=== PATIENT | female | born 1965 | race Caucasian/White ===

== ENCOUNTER → 2017-02-03 | Outpatient (CLI) | payer BC ==
[~2017-02-03] VITALS: Ht 165.1 cm; Wt 85.7 kg
[~2017-02-03] MED LIST: CHOL2000 PO; CRESTOR20 MG PO; FLUO40CA2 PO; LISI10TA2 PO; LORA10TA33 PO; MULT1TAB52 PO; OMEP20CA9 PO; PROAIR HFA8.5 GM INH; TRIA1TAB5 PO; VENL37.56 PO
[2017-02-03 07:21] VITALS: BP 124/82
[2017-02-03 07:44] LABS: BASO # 0.1 x10^3/uL (0.0-0.2); BASO % 1 % (0-3); EOS % 7 % (0-3); HEMATOCRIT 39.9 % (36.0-47.0); HEMOGLOBIN 13.1 g/dL (12.0-15.5); LYMPH # 2.7 x10^3/uL (1.0-4.8); LYMPH % 28 % (24-48); MEAN CORPUSCULAR HEMOGLOBIN 30 pg (25-35); MEAN CORPUSCULAR HGB CONC 33 g/dL (31-37); MEAN CORPUSCULAR VOLUME 91 fL (79-100); MONO % 6 % (0-9); NEUT % 58 % (31-73); PLATELET COUNT 278 x10^3/uL (140-400); RED BLOOD COUNT 4.38 x10^6/uL (3.50-5.40); WHITE BLOOD COUNT 9.5 x10^3/uL (4.0-11.0)
[2017-02-03 07:47] LABS: INR 0.9 (0.8-1.1)
--- NOTE | 2017-02-04 07:51 | RAD ---
Interventional radiology note: Mrs. Helton presented for ultrasound-guided biopsy of a posterior neck mass. Review of outside ultrasound demonstrated 3 to 5 mm subcutaneous hypoechoic nodule. Patient identifies a palpable abnormality in the posterior right neck. Ultrasound evaluation is performed, and previously seen nodule cannot be readily identified. No abnormal focal fluid collection or other abnormal masses identified. There is a probable small normal-appearing lymph node with 3 mm short axis diameter which is noted adjacent to the area of palpable abnormality. Patient reports the palpable abnormality has mildly decreased in size over time. Findings were discussed with the patient. The decision was made to hold off on biopsy for now. Recommend clinical surveillance and concern persists follow-up ultrasound.
== END | disposition home or self-care (01) ==
LOC: INTRAD 07:00
DX: R22.1 Localized swelling, mass and lump, neck (principal); Z53.8 Procedure and treatment not carried out for other reasons; E78.00 Pure hypercholesterolemia, unspecified; I10 Essential (primary) hypertension; J45.909 Unspecified asthma, uncomplicated; Z98.51 Tubal ligation status; Z79.01 Long term (current) use of anticoagulants
CPT/HCPCS: 36415; 38505; 85027; 85610; C1887

== ENCOUNTER 2018-07-11 10:13 | Emergency (ER) | payer BC ==
[~2018-07-11] VITALS: Ht 165.1 cm; Wt 96.2 kg
[~2018-07-11 10:13] MED LIST changes: +ALBU2.5V8 INH; -PROAIR HFA8.5 GM INH
[2018-07-11] MEDS ORDERED: ONDANSETRON PF 4 MG/2 ML VIAL. IV ONE (10:30)
[2018-07-11] MEDS ORDERED: IV NORMAL SALINE 1000ML BAG 1,000 ML IV SCH (10:30)
[2018-07-11] MEDS ORDERED: KETOROLAC 30 MG/ML VIAL. IV ONE (10:30)
--- NOTE | 2018-07-11 10:38 | PHYS DOC ---
Past Medical History Past Medical History: High Cholesterol, Hypertension, Kidney Stone Smoking: Cigarettes (The patient is a nonsmoker.) Adult General Chief Complaint Chief Complaint: FLANK PAIN HPI HPI Patient is a 53-year-old female presents to the emergency department for evaluation. She states that for the past 4 days, she has had some intermittent left flank pain, described as an achy pain, which feels similar to the prior episode of kidney stones that she has had in the past, although she has not had an episode in many years. She has not had any vomiting, but did feel nauseous last night. The pain began intermittently and has become more constant over the past few days. The patient does describe some burning sensation with urination, but has had less frequent urination than normal, and has not had any gross hematuria, no foul-smelling urine. She has not had any fevers or chills. There are no alleviating or exacerbating factors to the patient's symptoms. Review of Systems Review of Systems Constitutional: Denies fever or chills [] Eyes: Denies change in visual acuity, redness, or eye pain [] HENT: Denies nasal congestion or sore throat [] Respiratory: Denies cough or shortness of breath [] Cardiovascular: The patient denies any shortness of breath, chest pain, palpitations, or orthopnea[] GI: Denies abdominal pain, nausea, vomiting, bloody stools or diarrhea [] : Denies hematuria. Reports left flank pain [] Musculoskeletal: Denies back pain or joint pain [] Integument: Denies rash or skin lesions [] Neurologic: Denies headache, focal weakness or sensory changes [] Endocrine: Denies polyuria or polydipsia [] All other systems were reviewed and found to be within normal limits, except as documented in this note. Current Medications Current Medications Current Medications Medications (Trade) Dose Ordered Sig/Zach Start Time Stop Time Status Last Admin Dose Admin Ceftriaxone Sodium (Rocephin) 1 gm 1X ONCE 07/11/18 11:15 07/11/18 11:16 DC 07/11/18 11:37 1 GM Ketorolac Tromethamine (Toradol 30mg Vial) 30 mg 1X ONCE 07/11/18 10:30 07/11/18 10:35 DC 07/11/18 10:38 30 MG Morphine Sulfate (Morphine Sulfate) 4 mg 1X ONCE 07/11/18 11:15 07/11/18 11:16 DC 07/11/18 11:37 4 MG Ondansetron HCl (Zofran) 4 mg 1X ONCE 07/11/18 10:30 07/11/18 10:35 DC 07/11/18 10:38 4 MG Sodium Chloride 1,000 ml @ 1,000 mls/hr Q1H 07/11/18 10:30 07/11/18 11:29 DC 07/11/18 10:38 1,000 MLS/HR Allergies Allergies Allergies Coded Allergies Type Severity Reaction Last Updated Verified No Known Drug Allergies 02/03/17 No Physical Exam Physical Exam PHYSICAL EXAM: CONSTITUTIONAL: Well developed, well nourished HEAD: normocephalic, atraumatic EENT: PERRL, EOMI. Conjunctivae normal color, sclerae non-icteric; moist mucous membranes. NECK: Supple, non-tender; no meningismus. LUNGS: There are mild scattered expiratory wheezes,, breathing even and unlabored. Normal air movement. HEART: Regular rate and rhythm, no murmur CHEST: No deformity; non-tender ABDOMEN: The abdomen is soft, there is tenderness to palpation in the left lower quadrant, without rebound or guarding. The remainder the abdomen is soft and non-tender, no masses or bruits. EXTREM: Normal ROM; no deformity, no calf tenderness. Normal pulses palpable in all extremities. There is no pedal edema. SKIN: No rash; no diaphoresis NEURO: Alert; normal speech and cognition; CN's grossly intact; strength grossly intact without focal deficit. 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 Current Patient Data Vital Signs Vital Signs Date Time Temp Pulse Resp B/P (MAP) Pulse Ox O2 Delivery O2 Flow Rate FiO2 07/11/18 10:22 98.3 77 18 144/77 (99) 97 Room Air 98.3 Lab Values Laboratory Tests Test 07/11/18 10:18 07/11/18 10:25 Urine Collection Type Unknown Urine Color Yellow Urine Clarity Cloudy Urine pH 6.0 Urine Specific [place] 1.020 Urine Protein Negative mg/dL (NEG-TRACE) Urine Glucose (UA) Negative mg/dL (NEG) Urine Ketones (Stick) Negative mg/dL (NEG) Urine Blood Moderate (NEG) Urine Nitrite Negative (NEG) Urine Bilirubin Negative (NEG) Urine Urobilinogen Dipstick 0.2 mg/dL (0.2 mg/dL) Urine Leukocyte Esterase Large (NEG) Urine RBC 3-5 /HPF (0-2) Urine WBC >40 /HPF (0-4) Urine Squamous Epithelial Cells Many /LPF Urine Amorphous Sediment Present /HPF Urine Bacteria Few /HPF (0-FEW) Urine Mucus Marked /LPF White Blood Count 8.2 x10^3/uL (4.0-11.0) Red Blood Count 4.63 x10^6/uL (3.50-5.40) Hemoglobin 14.1 g/dL (12.0-15.5) Hematocrit 40.8 % (36.0-47.0) Mean Corpuscular Volume 88 fL (79-100) Mean Corpuscular Hemoglobin 30 pg (25-35) Mean Corpuscular Hemoglobin Concent 35 g/dL (31-37) Red Cell Distribution Width 14.2 % (11.5-14.5) Platelet Count 294 x10^3/uL (140-400) Neutrophils (%) (Auto) 55 % (31-73) Lymphocytes (%) (Auto) 34 % (24-48) Monocytes (%) (Auto) 6 % (0-9) Eosinophils (%) (Auto) 4 % (0-3) H Basophils (%) (Auto) 1 % (0-3) Neutrophils # (Auto) 4.5 x10^3uL (1.8-7.7) Lymphocytes # (Auto) 2.8 x10^3/uL (1.0-4.8) Monocytes # (Auto) 0.5 x10^3/uL (0.0-1.1) Eosinophils # (Auto) 0.3 x10^3/uL (0.0-0.7) Basophils # (Auto) 0.1 x10^3/uL (0.0-0.2) Sodium Level 138 mmol/L (136-145) Potassium Level 3.4 mmol/L (3.5-5.1) L Chloride Level 100 mmol/L (98-107) Carbon Dioxide Level 31 mmol/L (21-32) Anion Gap 7 (6-14) Blood Urea Nitrogen 19 mg/dL (7-20) Creatinine 0.9 mg/dL (0.6-1.0) Estimated GFR (Cockcroft-Gault) 65.0 BUN/Creatinine Ratio 21 (6-20) H Glucose Level 96 mg/dL (70-99) Calcium Level 9.6 mg/dL (8.5-10.1) Total Bilirubin 0.6 mg/dL (0.2-1.0) Aspartate Amino Transferase (AST) 24 U/L (15-37) Alanine Aminotransferase (ALT) 39 U/L (14-59) Alkaline Phosphatase 71 U/L (46-116) Total Protein 8.1 g/dL (6.4-8.2) Albumin 3.9 g/dL (3.4-5.0) Albumin/Globulin Ratio 0.9 (1.0-1.7) L Lipase 194 U/L (73-393) Laboratory Tests 07/11/18 10:25 Laboratory Tests 07/11/18 10:25 EKG EKG [] Radiology/Procedures Radiology/Procedures [PROCEDURE: CT ABDOMEN PELVIS WO CONTRAST PQRS Compliance statement: One or more of the following individualized dose reduction techniques were utilized for this examination: 1. Automated exposure control. 2. Adjustment of the mA and/or kV according to patient size. 3. Use of iterative reconstruction technique. Indication:L flank pain, Hx renal stones
previous TECHNIQUE: CT abdomen and pelvis without IV contrast with multiplanar reformats. COMPARISON: 05/04/2012 FINDINGS: Limited evaluation of solid abdominal and pelvic organs due to lack of IV contrast. Heart is normal in size. No pericardial or pleural effusion. Clear lung bases. Liver is normal in morphology. Spleen is unenlarged. No radiopaque gallstones. Noncontrast appearance of the pancreas is within normal limits. 2.0 x 2.0 cm stable low attenuating nodule is seen in the left adrenal gland the Hounsfield units of which is compatible with adrenal adenoma. Right adrenal gland within normal limits. No nephrolithiasis or hydronephrosis. Stable ignacio mesentery appearance of the central mesentery noted. No free pelvic fluid or ascites. No enlarged pelvic or retroperitoneal lymph nodes. Small sliding hiatal hernia. No bowel obstruction. Normal appendix. Uterus is anteverted. Urinary bladder demonstrates no radiopaque stones. No suspicious bony lesion. IMPRESSION: Limited evaluation of solid abdominal and pelvic organs due to lack of IV contrast. 1. No nephrolithiasis or hydronephrosis. 2. No bowel obstruction. Normal appendix.] Course & Med Decision Making Course & Med Decision Making Pertinent Labs and Imaging studies reviewed. (See chart for details) [12:00 PM:Patient remains stable. She is feeling better. I discussed test results, the need for close follow-up, and return precautions. She has a history of asthma, and states she has a nebulizer and inhalers: Declines the need for treatment for her mild wheezing at this time.] Dragon Disclaimer Dragon Disclaimer This electronic medical record was generated, in whole or in part, using a voice recognition dictation system. Departure Departure Impression: Primary Impression: Urinary tract infection Disposition: 01 HOME, SELF-CARE Condition: STABLE Referrals: JOHANNA CHERRY (PCP) Patient Instructions: Urinary Tract Infection Scripts Sulfamethoxazole/Trimethoprim (BACTRIM DS TABLET) 1 Each Tablet 1 TAB PO BID, #14 TAB Prov: BRANDY CAMPOS MD 07/11/18 BRANDY CAMPOS MD Jul 11, 2018 10:38
[2018-07-11 10:42] LABS: BASO # 0.1 x10^3/uL (0.0-0.2); BASO % 1 % (0-3); EOS # 0.3 x10^3/uL (0.0-0.7); EOS % 4 % (0-3); HEMATOCRIT 40.8 % (36.0-47.0); HEMOGLOBIN 14.1 g/dL (12.0-15.5); LYMPH # 2.8 x10^3/uL (1.0-4.8); LYMPH % 34 % (24-48); MEAN CORPUSCULAR HEMOGLOBIN 30 pg (25-35); MEAN CORPUSCULAR HGB CONC 35 g/dL (31-37); MEAN CORPUSCULAR VOLUME 88 fL (79-100); MONO # 0.5 x10^3/uL (0.0-1.1); MONO % 6 % (0-9); NEUT # 4.5 x10^3uL (1.8-7.7); NEUT % 55 % (31-73); PLATELET COUNT 294 x10^3/uL (140-400); RED BLOOD COUNT 4.63 x10^6/uL (3.50-5.40); RED CELL DISTRIBUTION WIDTH 14.2 % (11.5-14.5); WHITE BLOOD COUNT 8.2 x10^3/uL (4.0-11.0)
[2018-07-11 10:45] LABS: BILIRUBIN,URINE NEGATIVE (NEG); CLARITY,URINE CLOUDY; COLOR,URINE YELLOW; NITRITE,URINE NEGATIVE (NEG); PROTEIN,URINE NEGATIVE (NEG-TRACE); UROBILINOGEN,URINE 0.2 mg/dL (0.2 mg/dL)
[2018-07-11 10:51] LABS: CALCIUM 9.6 mg/dL (8.5-10.1); CREATININE 0.9 mg/dL (0.6-1.0); POTASSIUM 3.4 mmol/L (3.5-5.1)
[2018-07-11 10:57] LABS: ALBUMIN 3.9 g/dL (3.4-5.0); ALBUMIN/GLOBULIN RATIO 0.9 (1.0-1.7); TOTAL BILIRUBIN 0.6 mg/dL (0.2-1.0); TOTAL PROTEIN 8.1 g/dL (6.4-8.2)
[2018-07-11 10:58] LABS: SQUAMOUS EPITHELIAL CELL,UR MANY /LPF
[2018-07-11 10:59] LABS: BACTERIA,URINE FEW /HPF (0-FEW); WBC,URINE >40 /HPF (0-4)
[2018-07-11 11:00] LABS: AMORPHOUS SEDIMENT,UR PRESENT /HPF
[2018-07-11] MEDS ORDERED: cefTRIAXone IV Push 1 GM VIAL. IVP ONE (11:15)
[2018-07-11] MEDS ORDERED: MORPHINE SULFATE 4 MG/ML VIAL. IV ONE (11:15)
--- NOTE | 2018-07-11 11:31 | RAD ---
PQRS Compliance statement: One or more of the following individualized dose reduction techniques were utilized for this examination: 1. Automated exposure control. 2. Adjustment of the mA and/or kV according to patient size. 3. Use of iterative reconstruction technique. Indication:L flank pain, Hx renal stones
previous TECHNIQUE: CT abdomen and pelvis without IV contrast with multiplanar reformats. COMPARISON: 05/04/2012 FINDINGS: Limited evaluation of solid abdominal and pelvic organs due to lack of IV contrast. Heart is normal in size. No pericardial or pleural effusion. Clear lung bases. Liver is normal in morphology. Spleen is unenlarged. No radiopaque gallstones. Noncontrast appearance of the pancreas is within normal limits. 2.0 x 2.0 cm stable low attenuating nodule is seen in the left adrenal gland the Hounsfield units of which is compatible with adrenal adenoma. Right adrenal gland within normal limits. No nephrolithiasis or hydronephrosis. Stable ignacio mesentery appearance of the central mesentery noted. No free pelvic fluid or ascites. No enlarged pelvic or retroperitoneal lymph nodes. Small sliding hiatal hernia. No bowel obstruction. Normal appendix. Uterus is anteverted. Urinary bladder demonstrates no radiopaque stones. No suspicious bony lesion. IMPRESSION: Limited evaluation of solid abdominal and pelvic organs due to lack of IV contrast. 1. No nephrolithiasis or hydronephrosis. 2. No bowel obstruction. Normal appendix. Electronically signed by: Bill Delaney DO (07/11/2018 11:27 AM) [facility]
[2018-07-11 12:00] VITALS: BP 122/71
[2018-07-11] MEDS ORDERED: SULF1TAB24 PO (12:01)
== END 2018-07-11 12:21 | disposition home or self-care (01) ==
LOC: ER 10:13
DX: N39.0 Urinary tract infection, site not specified (principal); E78.00 Pure hypercholesterolemia, unspecified; I10 Essential (primary) hypertension; Z87.442 Personal history of urinary calculi; J45.909 Unspecified asthma, uncomplicated
CPT/HCPCS: 36415; 74176; 80053; 81001; 83690; 85025; 87086; 96374; 96375; 99284; J0696; J1885; J2270; J2405; J7030

== ENCOUNTER → 2018-11-22 | Outpatient (CLI) | payer BC ==
[~2018-11-22] MED LIST changes: +IOHEXOL 180 MG/ML 10 ML VIAL. ONE; +NAPR-514 PO; +OMEP20CA10 PO; -OMEP20CA9 PO; +SULF1TAB24 PO; +methylPREDNISolone ACETATE 40 MG/ML VIAL. ONE; +methylPREDNISolone ACETATE 80 MG/ML VIAL. ONE
--- NOTE | 2018-11-23 05:34 | PAIN ---
DATE OF SERVICE: 11/22/2018 INITIAL CONSULTATION FOR PAIN CLINIC: CHIEF COMPLAINT: Low back and left greater than right lower extremity pain. HISTORY OF PRESENT ILLNESS: This is a 53-year-old female who presents with history of pain in the low back and bilateral lower extremities, worse on the left than the right for about 4 weeks, not a result of any specific injury or accident that she is aware of, gradually building up with time, worse with standing and walking, better with sitting or lying down, but it has been waking her from sleep about 3 times at night. The patient reported it has not affected her bowel or bladder control, but does affect her ability to walk, and she is a teacher. Says she is on her feet quite a bit and beginning to bother her work fairly significantly. The patient reports that the pain is in the low back radiating to posterior gluteus on the left, posterior thigh and into the knee at times as well posteriorly on the left side, some on the right side, but very rarely, usually across the low back bilaterally with some moderate pain. The patient reports the pain is described as constant, sharp, stabbing, throbbing and aching, shooting into the left lower extremity as described. The patient did have an MRI scan, which was performed on 12/13/2015 showing some significant generalized disk bulging L3-L4, L4-L5 and L5-S1 with L4-L5 showing especially left-sided degeneration at the advanced endplate with advanced endplate degeneration. There is moderate ligamentum flavum thickening, mild central canal stenosis present, mild bilateral neural foraminal stenosis. L5-S1 shows a tiny focal central disk protrusion with fairly advanced left endplate degeneration with moderate to severe left neural foraminal stenosis and very mild right neural foraminal stenosis. The patient rates her disability rating from 0 to 10, 10 being the worst, is a 5 with family and home responsibilities, 7 with recreation, 6 with social activity and occupation, 9 with sexual behavior, 7 with life support activities, and 4 with self-care activities now. The patient has had epidural injections in the past, had trigger point injections, has tried physical therapy, also is still doing exercises neither of which have helped significantly, but the epidural injections as well as trigger point injections did help and that was in 2016 as well at an outside facility. The patient is taking tramadol as well as muscle relaxers and naproxen twice a day without significant improvement from any of these on an extended basis. The patient reports no loss of motor function with significant fatigability, especially with walking with a left leg, again better with sitting or lying down, but again has been awakening her from sleep frequently on the left past few weeks. PAST MEDICAL HISTORY: Significant for hypertension, arthritis, previous pneumonia, some shortness of breath, uterine ablation. PAST SURGICAL HISTORY: Other surgeries include left knee surgery x 3, right knee x 1 and fracture of right ankle, which was fixed with open reduction. CURRENT MEDICATIONS: Include lisinopril, naproxen, fluoxetine, ProAir and triamterene. ALLERGIES: No known drug allergies. FAMILY HISTORY: Significant for cancers of various types. SOCIAL HISTORY: The patient does not smoke, drinks about 2 glasses of wine 3 times a week on average. Does not use any illegal, illicit or recreational drugs. She is single. Lives locally in [place], [place]. REVIEW OF SYSTEMS: The patient's review of systems is positive for those items mentioned in history of present illness. All systems reviewed and otherwise negative. It is complete, full and well documented on the patient's chart. PHYSICAL EXAMINATION: VITAL SIGNS: The patient's blood pressure is 118/75, pulse 84, respirations 16, temperature 98.4 degrees Fahrenheit, height is 5 feet 4 inches, weight is 212 pounds. GENERAL: The patient is awake, alert, oriented, appropriate, very pleasant demeanor. HEENT: Head shows normocephalic, atraumatic. Extraocular movements are intact, symmetrical. Oral cavity: Mucous membranes moist and pink. Dentition is intact. NECK: Shows anterior throat supple without palpable lymphadenopathy noted. Swallow reflex is symmetrical. CHEST: Shows normal on inspection. Breath sounds clear to auscultation bilaterally. HEART: Shows S1, S2 clear. No murmurs auscultated. ABDOMEN: Soft, nontender, nondistended. No palpable organomegaly is noted. No rebound or guarding demonstrated. BACK: Shows spine grossly in the midline. Normal appearing thoracic kyphosis and some slight flattening of lumbar lordotic curvature. Lumbar paraspinous muscle shows symmetrical on inspection, with palpation shows some moderate tenderness, but only diffusely throughout the upper, middle and lower distribution in the paraspinous muscles bilaterally, but not with any trigger points or radiation of pain, no tenderness over the sacrum or sacroiliac regions or the spinous processes. The patient has good rotational motion bilaterally of the lumbar spine with greater than 10 degrees, right and left lateral as well as extension greater than 10 degrees and forward flexion 45 degrees without difficulty. EXTREMITIES: Lower extremities show deep tendon reflexes at 2+ in the patellar, 1+ tendo-calcaneus tendons. Motor exam is strong with 5/5 dorsiflexion, extension, quadriceps and hamstring flexion, symmetrical and equal. Peripheral pulses are 1+ posterior tibia. No peripheral edema is noted. Lower extremities are warm and dry to touch, equal in color and appearance. Straight leg raise is noted to be positive on the left at about 40 degrees with some pain radiating in the posterior gluteus, posterior thigh, this is decreased with knee flexion, right side is negative. Gaenslen's and Eyal's maneuvers are negative bilaterally. The patient is able to stand, stand on her toes without significant difficulty or loss of balance, is walking with a slight shuffling gait, appears to favor the left lower extremity only very minimally, not using any assistive devices to ambulate such as canes or walkers. SKIN: The patient's skin was warm and dry, good turgor. No edema. No sores, rashes or bruising. IMPRESSION: 1. This is a 53-year-old female with approximately a 4-week history of increasing pain, low back, left lower extremity in a radicular fashion and low back pain as described. 2. MRI scan as noted. 3. Hypertension. PLAN: Options were discussed with the patient including conservative medical management, physical therapy, interventional techniques. She would like to pursue with interventional techniques. We discussed a lumbar epidural steroid injection using descriptions as well as anatomical models to describe the procedure. Risks were then discussed including, but not limited to bleeding, infection, possibility of epidural hematoma and subsequent neurological compromise, dural puncture, headaches, spinal cord and/or nerve damage, side effects of steroid medication and poor results regarding pain control. The patient understands and wished to proceed. The patient will return to clinic in approximately 2 weeks for followup, was counseled as to return appointment, activity level and side effects to be aware of. DIAGNOSES: Lumbar radiculopathy with lumbar degenerative disk disease, lumbar spinal stenosis. PROCEDURE: Lumbar epidural steroid injection, translaminar approach L5-S1 level using C-arm fluoroscopic guidance under sterile prep and drape using local anesthetic. MEDICATION INJECTED: A total of 120 mg of Depo-Medrol plus 10 mL of preservative-free normal saline and 2 mL of Isovue for contrast. CONDITION AT DISCHARGE: Stable. The patient tolerated procedure well, had no complications. HEIDI LOPEZ MD DR: ESTHER/michelle JOB#: [id number] / [id number] Светлана Mckeon MD
== END | disposition home or self-care (01) ==
LOC: PNCL 13:08
PROVIDERS: ATTEND Anesthesiology
DX: M51.16 Intervertebral disc disorders with radiculopathy, lumbar region (principal); M48.061 Spinal stenosis, lumbar region without neurogenic claudication; I10 Essential (primary) hypertension; M19.90 Unspecified osteoarthritis, unspecified site; Z87.01 Personal history of pneumonia (recurrent); Z98.890 Other specified postprocedural states; Z79.899 Other long term (current) drug therapy; Z72.89 Other problems related to lifestyle
CPT/HCPCS: 62323; J1030; J1040; Q9965

== ENCOUNTER → 2018-12-15 | Outpatient (CLI) | payer BC ==
--- NOTE | 2018-12-16 01:26 | PAIN ---
DATE OF SERVICE: 12/15/2018 PROGRESS NOTE FOR PAIN CLINIC: DIAGNOSES: Lumbar radiculopathy with lumbar degenerative disk disease, lumbar spinal stenosis. HISTORY OF PRESENT ILLNESS: The patient is a 53-year-old female who returns for followup status post lumbar epidural steroid injection x 1. The patient reports of 65% improvement in the low back and left lower extremity pain. The patient has still some pain in the left side and low back, but much better. The patient reports increasing her activity with greater ease and comfort, has been walking greater distances and feels that she has more strength in her left leg as well. The patient reports she is stair climbing with greater ease during work activities, household activities, traveling with greater ease and comfort as well. The patient reports no new motor or sensory deficits, no new bowel or bladder incontinence, occasionally wakes her from sleep at night, but only very rarely. The patient rates her pain is a 5 on a scale of 10 at its worst over the past week, on average is a 2 or 3 and at its least is a 2 and is a 3 today. The patient reports it is aching, shooting, radiating into the left lower extremity as well as into the right hip and across the low back. PHYSICAL EXAMINATION: VITAL SIGNS: The patient's blood pressure 135/95, pulse 85, respirations 18, temperature 99.0 degrees Fahrenheit, height is 5 feet 4 inches and weight is 211 pounds. GENERAL: The patient is awake, alert, oriented, appropriate, very pleasant demeanor. HEENT: Head shows normocephalic, atraumatic. Extraocular movements are intact and symmetrical. Oral cavity, mucous membranes are moist and pink. Dentition is intact. NECK: Shows anterior throat supple without palpable lymphadenopathy noted. Swallow reflex symmetrical. CHEST: Shows normal with inspection. Breath sounds clear to auscultation bilaterally. HEART: Shows S1, S2 clear. No murmurs auscultated. ABDOMEN: Soft, nontender, nondistended. No palpable organomegaly is noted. No rebound or guarding demonstrated. BACK: Shows spine grossly in the midline. Normal appearing thoracic kyphosis and lumbar lordotic curvature. Lumbar paraspinous muscle shows symmetrical on inspection, on palpation shows some moderate tenderness diffusely in the low lumbar distribution, but only diffusely without significant radiation. The patient shows good rotational motion of lumbar spine, both laterally as well as extension and flexion without difficulty. EXTREMITIES: The patient's lower extremities show deep tendon reflexes at 2+ in the patellar, 1+ tendo-calcaneus tendons. Motor exam is strong with 5/5 dorsiflexion, extension and equal bilaterally. Peripheral pulses are 1+ posterior tibial. No peripheral edema is noted. Options were discussed with the patient. The patient's old chart was reviewed as her current medication regimen updated. Current review of systems updated today as well. We will proceed with a second in a series of lumbar epidural steroid injection today with fluoroscopic guidance. Risks were again discussed including, but not limited to bleeding, infection, possibility of epidural hematoma, subsequent neurologic compromise, dural puncture headaches, spinal cord and/or nerve damage, side effects of steroid medication and poor results regarding pain control. The patient understands and wished to proceed. The patient will return to clinic in approximately 2 weeks for followup. She was counseled as to return appointment, activity level and side effects to be aware of. DIAGNOSES: Lumbar radiculopathy with lumbar degenerative disk disease, lumbar spinal stenosis. PROCEDURE: Lumbar epidural steroid injection, translaminar approach at L5-S1 level using C-arm fluoroscopic guidance under sterile prep and drape using local anesthetic. MEDICATION INJECTED: A total of 120 mg Depo-Medrol plus 10 mL of preservative-free normal saline and 2 mL of Isovue for contrast. CONDITION AT DISCHARGE: Stable. The patient tolerated the procedure well, had no complications. HEIDI LOPEZ MD DR: ESTHER/michelle JOB#: [id number] / [id number]
== END ==
LOC: PNCL 09:00
PROVIDERS: ATTEND Anesthesiology
DX: M51.16 Intervertebral disc disorders with radiculopathy, lumbar region (principal); M48.061 Spinal stenosis, lumbar region without neurogenic claudication
CPT/HCPCS: 62323; J1030; J1040; Q9965

== ENCOUNTER → 2019-02-17 | Outpatient (CLI) | payer BC ==
[~2019-02-17] MED LIST changes: +TRAM50TA PO
--- NOTE | 2019-02-18 02:37 | PAIN ---
DATE OF SERVICE: 02/17/2019 PROGRESS NOTE FOR PAIN CLINIC DIAGNOSES: Lumbar radiculopathy with lumbar degenerative disk disease, lumbar spinal stenosis. HISTORY OF PRESENT ILLNESS: The patient is 53-year-old female who returns for followup status post lumbar epidural steroid injections x 2. The patient reports about 75% improvement for the first 2 months after the last injection, which was on 12/15/2018. The patient did very well, but the pain is returning now in the low back and to left lower extremity, posterior gluteus, posterior thigh, posterior calf and lateral thigh and calf as well. The patient reports it is radiating pain, it is becoming more severe with standing, walking, also stabbing pain, sharp and shooting in the low back and left leg. The patient reports it is an 8 on a scale of 10 at its worst in the past week, 6 on average, 4 at its least, and is 6 today. The patient reports no new motor or sensory deficits, better with sitting or lying down, but does awake her from sleep occasionally, not every night. The patient reports before that she was doing very well with increase in her distance walking, doing household activities as well as traveling with greater ease and comfort as well. The patient reports no new motor or sensory deficits, no new bowel or bladder incontinence or other complaints. PHYSICAL EXAMINATION: VITAL SIGNS: The patient's blood pressure is 145/91, pulse 81, respirations are 16, temperature is 98.1 degrees Fahrenheit, height is 5 feet 4 inches and weight is 219 pounds. GENERAL: The patient is awake, alert, oriented, appropriate, very pleasant demeanor. HEENT: Head shows normocephalic, atraumatic. Extraocular movements are intact and symmetrical. Oral cavity, mucous membranes are moist and pink. Dentition is intact. NECK: Shows anterior throat supple without palpable lymphadenopathy noted. Swallow reflex symmetrical. CHEST: Shows normal on inspection. Breath sounds clear to auscultation bilaterally. HEART: Shows S1, S2 clear. No murmurs auscultated. ABDOMEN: Soft, obese, nontender, nondistended. BACK: Shows spine grossly in the midline. Normal appearing thoracic kyphosis and minor flattening of lumbar lordotic curvature. Lumbar paraspinous muscle shows symmetrical on inspection with palpation shows some moderate tenderness diffusely bilaterally, but only diffusely without radiation. The patient has good rotational motion of lumbar spine. EXTREMITIES: Lower extremities show deep tendon reflexes at 2+ in the patellar, 1+ tendo-calcaneus tendons. Motor exam is strong with 5/5 dorsiflexion, extension, quadriceps and hamstring flexion equal. Peripheral pulses are 1+ posterior tibial. No peripheral edema is noted bilaterally. Options were discussed with the patient. The patient's old chart was reviewed as her current medication regimen updated. Current review of systems updated today as well. We will proceed with a third in the series of lumbar epidural steroid injection today with fluoroscopic guidance. Risks were again discussed including, but not limited to bleeding, infection, possibility of epidural hematoma, subsequent neurological compromise, dural puncture headaches, spinal cord and/or nerve damage, side effects of steroid medication and poor results regarding pain control. The patient understands and wished to proceed. The patient will return to clinic in approximately 2 weeks for followup. She was counseled on return appointment, activity level and side effects to be aware of. DIAGNOSES: Lumbar radiculopathy with lumbar degenerative disk disease, lumbar spinal stenosis. PROCEDURE: Lumbar epidural steroid injection, translaminar approach at L5-S1 level using C-arm fluoroscopic guidance under sterile prep and drape using local anesthetic. MEDICATION INJECTED: A total of 120 mg Depo-Medrol plus 10 mL of preservative-free normal saline and 2 mL of contrast. CONDITION AT DISCHARGE: Stable. The patient tolerated the procedure well, had no complications. HEIDI LOPEZ MD DR: ESTHER/michelle JOB#: [id number] / [id number]
== END ==
LOC: PNCL 11:32
PROVIDERS: ATTEND Anesthesiology
DX: M51.16 Intervertebral disc disorders with radiculopathy, lumbar region (principal); M48.061 Spinal stenosis, lumbar region without neurogenic claudication; M54.5 Low back pain
CPT/HCPCS: 62323; J1030; J1040; Q9965